=== PATIENT | female | born 1950 | race Hispanic/Latino ===

== ENCOUNTER → 2016-12-26 | Outpatient (CLI) | payer MEDICARE ==
--- NOTE | 2016-12-27 10:26 | CT ---
EXAM DESCRIPTION: Abdomen/Pelvis w/Contrast CLINICAL HISTORY: ABDOMEN PAIN COMPARISON: None. TECHNIQUE: CT of the abdomen and pelvis was performed with IV contrast only. Multiple axial images and multiplanar reconstructions were generated. This exam was performed according to our department minimal dose optimization program which includes automated exposure control, adjustment of mA and/or kV according to patient size and/or use of iterative reconstructed techniques. FINDINGS: Lung bases are clear. The spleen, bilateral adrenal glands, pancreas and bilateral kidneys are unremarkable. Pneumobilia noted. Portal vein is widely patent. Gallbladder is not definitively noted on today's study. The common bile duct is not enlarged measuring 3 mm in diameter. The appendix is normal. The colon is unremarkable. Small bowel is nonobstructed. The mesentery is unremarkable. The abdominal aorta and IVC are unremarkable. The uterus and bilateral ovaries are unremarkable. Urinary bladder is unremarkable. Osseous structures demonstrate no acute findings. IMPRESSION: 1. Pneumobilia is noted. This can be a normal finding in a patient with a history of ERCP and an ampullectomy. If there is no evidence of previous intervention in this could be secondary to a biliary tract infection. 2. The gallbladder is not definitively noted on today's nondedicated study. 3. No additional findings on today's study to account for patient's abdominal pain. Electronically signed by: Bran Hogan MD 12/27/2016 10:25 AM CDT
== END | disposition home or self-care (01) ==
LOC: RAD 13:38
PROVIDERS: ATTEND Pediatrics Pediatric Gastroenterology
DX: R10.9 Unspecified abdominal pain (principal); R10.13 Epigastric pain; R19.8 Other specified symptoms and signs involving the digestive system and abdomen

== ENCOUNTER → 2018-06-18 | Outpatient (CLI) | payer MEDICARE ==
--- NOTE | 2018-06-18 15:30 | RAD ---
EXAM DESCRIPTION: Thoracic Spine,AP Lateral CLINICAL HISTORY: 68 years Female, T SPINE PAIN COMPARISON: None. FINDINGS: Two views of the thoracic spine show no vertebral body fracture or subluxation. There is no disc space narrowing. Tiny anterior osteophytes are present at a few levels in the midthoracic spine. No posterior rib fracture is identified. IMPRESSION: Mild degenerative changes, otherwise unremarkable exam. Electronically signed by: Flip Bellamy MD 06/18/2018 3:28 PM CDT
== END ==
LOC: RAD 13:25
PROVIDERS: ATTEND Family Medicine
DX: M54.6 Pain in thoracic spine (principal)

== ENCOUNTER 2019-06-10 16:49 | Emergency (ER) | payer MEDICARE ==
--- NOTE | 2019-06-10 17:14 | ED.PDOC ---
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 Patient indicates that the pain came on 20 minutes prior to arrival and only lasted for a few minutes then went away and she is completely asymptomatic now. The pain was a crampy pain, 5 out of 10 in intensity, nonradiating. Patient denies dysuria, nausea, vomiting, diarrhea. Patient's past surgical history is significant for Cholecystectomy. Patient is feeling completely normal now. She indicates that she has had issues with insomnia for the past 2 weeks. Review of Systems - Review of Systems Constitutional: States: no symptoms reported EENTM: States: no symptoms reported Respiratory: States: no symptoms reported. Denies: cough, short of breath Cardiology: States: no symptoms reported. Denies: chest pain, palpitations Gastrointestinal/Abdominal: States: see HPI. Denies: nausea, vomiting Genitourinary: States: no symptoms reported. Denies: dysuria Musculoskeletal: States: no symptoms reported. Denies: muscle pain Skin: States: no symptoms reported All other Systems: Reviewed and Negative Past Medical History (General) - Patient Medical History Hx Hypertension: Yes Hx Thyroid Disease: Yes Hx Diabetes: Yes - Vaccination History Hx Tetanus, Diphtheria Vaccination: No Hx Influenza Vaccination: No Hx Pneumococcal Vaccination: No - Social History Hx Tobacco Use: No Hx Depression: Yes Family Medical History - Family History Mother Family History: No Known Physical Exam - Physical Exam General Appearance: Alert, Comfortable, No apparent distress Eyes, Ears, Nose, Throat Exam: PERRL/EOMI, normal ENT inspection Neck: non-tender, full range of motion, supple Respiratory: chest non-tender, lungs clear, normal breath sounds, no respiratory distress, no accessory muscle use Cardiovascular/Chest: normal peripheral pulses, regular rate, rhythm, no edema, no gallop, no JVD, no murmur Gastrointestinal/Abdominal: normal bowel sounds, non tender, soft, no organomegaly, no pulsatile mass Back Exam: normal inspection, no CVA tenderness Extremity: normal range of motion, non-tender, normal inspection, no pedal edema 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 Patient's ini tial labs showed a slight anion gap with decreased CO2 but glucose is not grossly elevated and patient is not in DKA. IV fluids given and patient's electrolytes are trending in the proper direction. Her sodium remains slightly low at 128. I discussed with the patient and family OBS admission for electrolyte correction but patient indicates that she is completely asymptomatic and wishes to not be admitted but go home with follow-up outpatient with her PCP this week. Patient has a doctor and she indicates she will easily be able to make an appointment. I have expressed to patient and family the need for close follow-up with repeat lab work to evaluate electrolytes. Patient's UA does show evidence of UTI, we'll treat. Vital signs stable, patient NAD and looks clinically well and is safe for discharge with outpatient follow-up. Follow-up instructions, discharge instructions and return to ED precautions discussed with patient. Patient voices understanding and willingness to comply with instructions. All laboratory and radiographic results have been discussed with the patient, and all questions answered. Patient happy with plan. - Results/Orders Results/Orders: 06/10/19 18:15 Urine Culture Stat 06/10/19 18:42 Urine Culture Stat Laboratory Results - last 24 hr 06/10/19 06/10/19 06/10/19 17:19 17:19 18:15 WBC 9.2 RBC 4.91 Hgb 14.0 Hct 41.3 MCV 84.1 MCH 28.5 MCHC 33.9 RDW 13.4 Plt Count 201 MPV 10.9 H Absolute Neuts (auto) 5.90 Absolute Lymphs (auto) 2.60 Absolute Monos (auto) 0.40 Absolute Eos (auto) 0.20 Absolute Basos (auto) 0.10 Neutrophils % 64.1 Lymphocytes % 28.7 Monocytes % 4.6 Eosinophils % 1.9 Basophils % 0.7 Sodium 129 L Potassium 4.0 Chloride 96 L Carbon Dioxide 18 L Anion Gap 19.0 H BUN 16 Creatinine 0.78 BUN/Creatinine Ratio 20.5 H Random Glucose 158 H Serum Osmolality 263.4 L Calcium 9.3 Total Bilirubin 0.5 AST 35 ALT 27 Alkaline Phosphatase 83 Serum Total Protein 7.6 Albumin 4.3 Globulin 3.3 Albumin/Globulin Ratio 1.3 Urine Color Yellow Urine Appearance Sl cloudy Urine pH 6.0 Ur Specific [place] 1.025 Urine Protein 100 H Urine Glucose (UA) Negative Urine Ketones 15 H Urine Blood Trace-intact H Urine Nitrite Negative Urine Bilirubin Small H Urine Urobilinogen 1.0 Ur Leukocyte Esterase Small H Urine RBC 0-1 Urine WBC 10-20 H Ur Epithelial Cells 5-10 Urine Bacteria Rare Urine Mucus Moderate 06/10/19 18:51 WBC RBC Hgb Hct MCV MCH MCHC RDW Plt Count MPV Absolute Neuts (auto) Absolute Lymphs (auto) Absolute Monos (auto) Absolute Eos (auto) Absolute Basos (auto) Neutrophils % Lymphocytes % Monocytes % Eosinophils % Basophils % Sodium 128 L Potassium 4.4 Chloride 95 L Carbon Dioxide 21 Anion Gap 16.4 BUN 17 Creatinine 0.79 BUN/Creatinine Ratio 21.5 H Random Glucose 154 H Serum Osmolality 261.7 L Calcium 9.2 Total Bilirubin AST ALT Alkaline Phosphatase Serum Total Protein Albumin Globulin Albumin/Globulin Ratio Urine Color Urine Appearance Urine pH Ur Specific [place] Urine Protein Urine Glucose (UA) Urine Ketones Urine Blood Urine Nitrite Urine Bilirubin Urine Urobilinogen Ur Leukocyte Esterase Urine RBC Urine WBC Ur Epithelial Cells Urine Bacteria Urine Mucus Departure - Departure Clinical Impression: UTI (urinary tract infection) Qualifiers: Hematuria presence: with hematuria Disposition: Discharge to Home or Self Care Condition: Fair Departure Forms: ED Discharge - Pt. Copy, Patient Portal Self Enrollment Instructions: DI for Abdominal Pain-Adult, Urinary Tract Infection, Adult (DC) Activity: walking as tolerated Referrals: Armando Woods MD [Primary Care Provider] - 1-2 Days Prescriptions: Ciprofloxacin HCl [Cipro] 500 mg PO BID #20 tab Home Medications: Ambulatory Orders BuPROPion XL [Wellbutrin XL] 150 mg PO DAILY 04/28/15 Escitalopram [Lexapro] 10 mg PO DAILY 04/28/15 Eszopiclone [Lunesta] 2 mg PO DAILY 04/28/15 Glipizide [Glipizide ER] 5 mg PO DAILY 04/28/15 Irbesartan [Avapro] 150 mg PO DAILY 04/28/15 Lovastatin 20 mg PO DAILY 04/28/15 Nitrofurantoin Monohydrate Mac [Macrobid] 100 mg PO BID #14 cap 04/28/15 QUEtiapine FUMARATE [Seroquel] 100 mg PO BEDTIME 04/28/15 Trazodone HCl 50 mg PO BEDTIME 04/28/15 Ciprofloxacin HCl [Cipro] 500 mg PO BID #20 tab 06/10/19
[2019-06-10] MEDS ORDERED: SODIUM CHLORIDE 0.9% 1000ML 1,000 ML IVS ONE (18:41)
[2019-06-10] MEDS ORDERED: cefTRIAXone SODIUM 1 GM in SODIUM CHL 0.9% 50ML MIN-BAG+ 50 ML IVPB ONE (18:41)
[2019-06-10] MEDS ORDERED: cefTRIAXone SODIUM 1 GM VIAL ONE (19:34)
[2019-06-10] MEDS ORDERED: SODIUM CHL 0.9% 50ML MIN-BAG+ 50 ML IVPB ONE (19:34)
[2019-06-10 21:49] VITALS: BP 144/79; TEMP 98.3; O2SAT 100
== END 2019-06-10 21:56 | disposition home or self-care (01) ==
LOC: ER 16:49
DX: N39.0 Urinary tract infection, site not specified (principal); R31.9 Hematuria, unspecified; G47.00 Insomnia, unspecified; F32.9 Major depressive disorder, single episode, unspecified; E11.9 Type 2 diabetes mellitus without complications; I10 Essential (primary) hypertension; E07.9 Disorder of thyroid, unspecified; Z90.49 Acquired absence of other specified parts of digestive tract
CPT/HCPCS: 36415; 80048; 80053; 81001; 85025; J0696; J7030; J7050

== ENCOUNTER 2020-06-12 12:21 | Emergency (ER) | payer MEDICARE ==
--- NOTE | 2020-06-12 12:31 | ED.PDOC ---
History of Present Illness - General Time Seen by Provider: 06/12/20 12:23 Source: patient - History of Present Illness Initial Comments: 70-year-old female with past medical history of hypertension, diabetes who is brought in by EMS from home for chief complaint of abdominal pain and vomiting. Onset of symptoms 2 days ago and worsened this morning. She reported just prior to arrival she had worsening of abdominal pain which she described as sharp and generalized, 10/10 severity, lasted for approximately 30 minutes. She reported several episodes of nonbloody nonbilious emesis and the pain resolved and has been resolved since then. She also reports that she briefly fainted at home. She has not taken any medications for relief today. All of this was concerning to family so EMS was called. Patient was reported to have stable vitals in rout e, no medications were given. Patient reports that she tested positive for COVID-19 on 06/03/2020. She was prescribed outpatient antibiotics and reports that she has finish the full course. She reports she has generally been doing well until 2 days ago. Denies any fevers, chills, diarrhea, chest pain, cough, sore throat, shortness of breath, leg swelling, headache, body aches. Her PCP is in [place]. Reports prior abdominal surgeries of hysterectomy and cholecystectomy. Allergies/Adverse Reactions: Allergies Penicillins Allergy (Verified 06/12/20 13:24) Home Medications: Ambulatory Orders BuPROPion XL [Wellbutrin XL] 150 mg PO DAILY 04/28/15 Escitalopram [Lexapro] 10 mg PO DAILY 04/28/15 Eszopiclone [Lunesta] 2 mg PO DAILY 04/28/15 Glipizide [Glipizide ER] 5 mg PO DAILY 04/28/15 Irbesartan [Avapro] 150 mg PO DAILY 04/28/15 Lovastatin 20 mg PO DAILY 04/28/15 Nitrofurantoin Monohydrate Mac [Macrobid] 100 mg PO BID #14 cap 04/28/15 QUEtiapine FUMARATE [Seroquel] 100 mg PO BEDTIME 04/28/15 Trazodone HCl 50 mg PO BEDTIME 04/28/15 Ciprofloxacin HCl [Cipro] 500 mg PO BID #20 tab 06/10/19 Azithromycin Tab [Zithromax Tab] 250 mg PO DAILY 4 Days #4 tab 06/12/20 Benzonatate Perles [Tessalon Perles] 200 mg PO Q8H PRN 10 Days #30 cap 06/12/20 Ondansetron Odt [Zofran ODT] 8 mg PO Q8H PRN 5 Days #10 tab 06/12/20 Review of Systems - Review of Systems Review of Systems: 06/12/20 12:51 as per HPI All other Systems: Reviewed and Negative Past Medical History (General) - Patient Medical History Hx Hypertension: Yes Hx Thyroid Disease: Yes Hx Diabetes: Yes Hx Cancer: No Hx Hepatitis C: No - Vaccination History Hx Tetanus, Diphtheria Vaccination: No Hx Influenza Vaccination: No Hx Pneumococcal Vaccination: No - Social History Hx Tobacco Use: No Hx Alcohol Use: No Hx Depression: Yes Family Medical History - Family History Mother Family History: No Known Physical Exam - Physical Exam General Appearance: Alert, Comfortable, No apparent distress Eye Exam: bilateral normal Ears, Nose, Throat: hearing grossly normal, normal ENT inspection, normal pharynx Neck: non-tender, full range of motion, supple, normal inspection Respiratory: lungs clear, normal breath sounds, no respiratory distress, no accessory muscle use Cardiovascular/Chest: normal peripheral pulses, regular rate, rhythm, no edema, no gallop, no JVD, no murmur Peripheral Pulses: radial,right: 2+, radial,left: 2+ Gastrointestinal/Abdominal: non tender, soft, no organomegaly Back Exam: normal inspection, no CVA tenderness, no vertebral tenderness Extremity: normal range of motion, non-tender, normal inspection, no pedal edema, no calf tenderness, normal capillary refill 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 Consider also colitis, COVID-19, flu, strep, UTI, bowel obstruction, constipation, acute pancreatitis, acute appendicitis, other -Patient stable, afebrile upon ED arrival, no acute distress. Reports 0/10 severity pain currently -Obtain blood work, COVID-19 ED panel, Flu, strep, UA -place PIV, 1 L NS bolus, Zofran 4 mg IV 06/12/20 14:48 -Patient remains stable. No further reported abdominal pain, vomiting, diarrhea. Labs reviewed. Pertinent for positive strep test, negative flu and COVID-19. Sodium level is 126, corrected to 129 for hyperglycemia. Serum glucose is 212. Lactic acid level 1.2. Serum WBC within normal limits. Remainder of labs largely unremarkable. -On chart review, it is noted that patient has had hyponatremia in the past, this appears acute on chronic in nature. Likely secondary to mild dehydration. -Discussed all findings and diagnoses of strep pharyngitis, COVID-19, viral gastroenteritis with the patient. I suspect that the current symptoms are likely due to a separate viral illness such as enterovirus and that her COVID-19 test is still positive from her illness last week. Advised that the patient remain well-hydrated and gradually advance her diet as tolerated. Advised to follow-up with her primary care doctor next week for repeat evaluation and repeat labs. Discharge home with family in good condition, return warnings discussed at length. Prescription for azithromycin given for strep throat as patient is penicillin allergic. Prescriptions for Zofran and Tessalon Perles also given. Oh Chapa MD Billing #[id number] 06/12/20 12:24 Telemetry STAT URINALYSIS Stat 06/12/20 12:30 Pulse Ox, Continuous Monitoring STAT 06/12/20 13:00 EKG STAT 06/13/20 12:30 Pulse Ox, Continuous Monitoring STAT 06/14/20 12:30 Pulse Ox, Continuous Monitoring STAT Laboratory Results - last 24 hr 06/12/20 06/12/20 06/12/20 12:50 12:50 12:50 WBC 5.9 RBC 4.60 Hgb 13.4 Hct 37.8 MCV 82.2 MCH 29.0 MCHC 35.3 RDW 13.4 Plt Count 185 MPV 9.2 Absolute Neuts (auto) 4.50 Absolute Lymphs (auto) 0.90 L Absolute Monos (auto) 0.50 Absolute Eos (auto) 0.00 Absolute Basos (auto) 0.00 Neutrophils % 76.1 Lymphocytes % 14.7 L Monocytes % 8.7 Eosinophils % 0.3 L Basophils % 0.2 PTT (SP) 25.9 D-Dimer, Quantitative 265.0 Sodium 126 L Potassium 4.3 Chloride 94 L Carbon Dioxide 20 L Anion Gap 16.3 BUN 13 Creatinine 0.69 BUN/Creatinine Ratio 18.8 Random Glucose 214 H Serum Osmolality 259.9 L Lactic Acid Calcium 8.4 Magnesium 1.7 L Total Bilirubin 0.7 AST 32 ALT 33 Alkaline Phosphatase 87 LD Total 143 Creatine Kinase 52 Troponin I C-Reactive Protein 4.5 H B-Natriuretic Peptide < 15.0 Serum Total Protein 7.4 Albumin 4.1 Globulin 3.3 Albumin/Globulin Ratio 1.2 Lipase Group A Strep Rapid 06/12/20 06/12/20 06/12/20 12:50 12:50 12:50 WBC RBC Hgb Hct MCV MCH MCHC RDW Plt Count MPV Absolute Neuts (auto) Absolute Lymphs (auto) Absolute Monos (auto) Absolute Eos (auto) Absolute Basos (auto) Neutrophils % Lymphocytes % Monocytes % Eosinophils % Basophils % PTT (SP) D-Dimer, Quantitative Sodium Potassium Chloride Carbon Dioxide Anion Gap BUN Creatinine BUN/Creatinine Ratio Random Glucose Serum Osmolality Lactic Acid 1.2 Calcium Magnesium Total Bilirubin AST ALT Alkaline Phosphatase LD Total Creatine Kinase Troponin I < 0.02 C-Reactive Protein B-Natriuretic Peptide Serum Total Protein Albumin Globulin Albumin/Globulin Ratio Lipase 24 Group A Strep Rapid 06/12/20 13:44 WBC RBC Hgb Hct MCV MCH MCHC RDW Plt Count MPV Absolute Neuts (auto) Absolute Lymphs (auto) Absolute Monos (auto) Absolute Eos (auto) Absolute Basos (auto) Neutrophils % Lymphocytes % Monocytes % Eosinophils % Basophils % PTT (SP) D-Dimer, Quantitative Sodium Potassium Chloride Carbon Dioxide Anion Gap BUN Creatinine BUN/Creatinine Ratio Random Glucose Serum Osmolality Lactic Acid Calcium Magnesium Total Bilirubin AST ALT Alkaline Phosphatase LD Total Creatine Kinase Troponin I C-Reactive Protein B-Natriuretic Peptide Serum Total Protein Albumin Globulin Albumin/Globulin Ratio Lipase Group A Strep Rapid Positive H - EKG/XRAY/CT EKG: Sinus - Normal sinus rhythm, heart rate 75, no ST elevations or Q waves noted, axis normal, intervals normal, no prior EKG for comparison. XRAY: chest - Slight opacifications noted in the right perihilar region in the left lower lung consistent with atelectasis versus possible infiltrate per my read. Peribronchial cuffing also noted consistent with viral respiratory infection Departure - Departure Clinical Impression: Gastroenteritis, Strep pharyngitis, Hyponatremia, COVID-19 Time of Disposition: 14:42 Disposition: Discharge to Home or Self Care Condition: Good Departure Forms: ED Discharge - Pt. Copy, Patient Portal Self Enrollment Instructions: Strep Throat (DC), Viral Gastroenteritis, Adult (DC) Diet: resume usual diet Activity: increase activity as tolerated Referrals: Armando Woods MD [Primary Care Provider] - 1-2 Weeks Prescriptions: Benzonatate Perles [Tessalon Perles] 200 mg PO Q8H PRN 10 Days #30 cap PRN Reason: Cough Azithromycin Tab [Zithromax Tab] 250 mg PO DAILY 4 Days #4 tab Ondansetron Odt [Zofran ODT] 8 mg PO Q8H PRN 5 Days #10 tab PRN Reason: Nausea Home Medications: Ambulatory Orders BuPROPion XL [Wellbutrin XL] 150 mg PO DAILY 04/28/15 Escitalopram [Lexapro] 10 mg PO DAILY 04/28/15 Eszopiclone [Lunesta] 2 mg PO DAILY 04/28/15 Glipizide [Glipizide ER] 5 mg PO DAILY 04/28/15 Irbesartan [Avapro] 150 mg PO DAILY 04/28/15 Lovastatin 20 mg PO DAILY 04/28/15 Nitrofurantoin Monohydrate Mac [Macrobid] 100 mg PO BID #14 cap 04/28/15 QUEtiapine FUMARATE [Seroquel] 100 mg PO BEDTIME 04/28/15 Trazodone HCl 50 mg PO BEDTIME 04/28/15 Ciprofloxacin HCl [Cipro] 500 mg PO BID #20 tab 06/10/19 Azithromycin Tab [Zithromax Tab] 250 mg PO DAILY 4 Days #4 tab 06/12/20 Benzonatate Perles [Tessalon Perles] 200 mg PO Q8H PRN 10 Days #30 cap 06/12/20 Ondansetron Odt [Zofran ODT] 8 mg PO Q8H PRN 5 Days #10 tab 06/12/20 Additional Instructions: Keep the patient well-hydrated and gradually advance the diet and activity level as tolerated. Give the antibiotics as directed and finish the full course even if well. You may give the Zofran as directed for nausea and the Tessalon Perles as directed for coughing. Return to the ED if the patient develops any concerning symptoms such as worsening abdominal pain, intractable nausea and vomiting, large volume or frequent diarrhea, blood in the vomit or stools, chest pain, shortness of breath, etc. The patient was noted to have a slightly low sodium level on her labs this visit which is likely due to mild dehydration. It is recommended that she have repeat labs done by her primary doctor next week. It is advised that the patient be reevaluated next week by her primary care physician or sooner as needed. The patient tested positive today for COVID-19 and for strep throat. She tested negative for flu.
[2020-06-12] MEDS ORDERED: SODIUM CHLORIDE 0.9% 1000ML 1,000 ML IVS ONE (12:53)
[2020-06-12] MEDS ORDERED: ONDANSETRON INJ 4 MG/2 ML VIAL IV ONE (12:53)
--- NOTE | 2020-06-12 13:33 | RAD ---
XR CHEST 1 VIEW HISTORY: 70 years Female abd pain, +COVID-19 COMPARISON: Thoracic spine radiographs dated June 18, 2018. TECHNIQUE: Single AP view of the chest. FINDINGS: Lungs: There are low lung volumes with resultant bronchovascular crowding. Subtle hazy attenuation in the perihilar right lung and lower lateral left lung, nonspecific. Peribronchial cuffing in the perihilar right lung consistent with airway inflammatory changes. Heart/Mediastinum: Cardiomediastinal silhouette is unremarkable. Bones: No acute abnormality detected. IMPRESSION: Subtle airspace disease and/or atelectasis in the perihilar right lung and lateral lower left lung. Peribronchial cuffing consistent with airway inflammation. Electronically signed by: Everardo Loepz MD 06/12/2020 1:32 PM CDT
[2020-06-12] MEDS ORDERED: AZITHROMYCIN 250 MG TAB PO ONE (14:41)
[2020-06-12 14:59] VITALS: BP 140/79; TEMP 97.2; O2SAT 95
== END 2020-06-12 14:58 | disposition home or self-care (01) ==
LOC: ER 12:21
DX: U07.1 COVID-19 (principal); K52.9 Noninfective gastroenteritis and colitis, unspecified; J02.0 Streptococcal pharyngitis; E87.1 Hypo-osmolality and hyponatremia; Z20.828 Contact with and (suspected) exposure to other viral communicable diseases; Z88.0 Allergy status to penicillin; E11.9 Type 2 diabetes mellitus without complications; I10 Essential (primary) hypertension; E07.9 Disorder of thyroid, unspecified; Z79.84 Long term (current) use of oral hypoglycemic drugs
CPT/HCPCS: 36415; 71045; 80053; 82550; 83605; 83615; 83690; 83735; 83880; 84484; 85025; 85379; 85730; 86140; 87502; 87635; 87880; 93005; J2405; J7030; Q0144